=== PATIENT | female | born 1960 | race American Indian/Alaskan Native ===

== ENCOUNTER 2019-06-25 05:46 | Inpatient (IN) | payer SELFPAY ==
[2019-06-25 06:13] LABS: Basophils % (Auto) 0.4 % (0.0-1.8); Eosinophils # (Auto) 0.1 K/mm3 (0.0-0.4); Eosinophils % (Auto) 1.4 % (0.0-4.3); Hematocrit 33.6 % (30.3-42.9); Hemoglobin 11.3 gm/dl (10.1-14.3); Lymphocytes # (Auto) 3.1 K/mm3 (1.2-5.4); Lymphocytes % (Auto) 29.2 % (13.4-35.0); Mean Corpuscular HGB Conc 34 % (30-34); Mean Corpuscular Volume 94 fl (79-97); Monocytes # (Auto) 0.5 K/mm3 (0.0-0.8); Monocytes % (Auto) 5.1 % (0.0-7.3); Platelet Count 267 K/mm3 (140-440); Red Blood Count 3.57 M/mm3 (3.65-5.03); Red Cell Distribution Width 14.2 % (13.2-15.2)
[2019-06-25 06:38] LABS: Alanine Aminotransferase 12 units/L (7-56); Albumin 4.2 g/dL (3.9-5); BUN/Creatinine Ratio 35; Blood Urea Nitrogen 21 mg/dL (7-17); Calcium 10.2 mg/dL (8.4-10.2); Hemolysis Index 11
[2019-06-25 06:45] LABS: Bacteria,Urine 1+ /HPF (Negative); Bilirubin,Urine NEG (Negative); Blood,Urine MOD (Negative); Color,Urine Yellow (Yellow); Mucus,Urine 1+ /HPF; Urobilinogen,Urine < 2.0 mg/dL (<2.0)
[2019-06-25] MEDS ORDERED: SODIUM CHLORIDE 0.9% 1000 ML 1,000 ML IV ONE (07:30)
[2019-06-25] MEDS ORDERED: MORPHINE 4 MG/1 ML INJ IV ONE ×3 (07:30→12:37)
[2019-06-25] MEDS ORDERED: ONDANSETRON 4 MG/2 ML INJ IV ONE ×2 (07:30→16:59)
[2019-06-25] MEDS ORDERED: FAMOTIDINE 20 MG/2 ML INJ IV ONE (07:31)
--- NOTE | 2019-06-25 07:39 | Emergency Department Report ---
ED General Adult HPI - General Chief complaint: Abdominal Pain Stated complaint: ABDOMINAL PAIN Time Seen by Provider: 06/25/19 07:23 Source: patient Mode of arrival: Ambulatory Limitations: No Limitations - History of Present Illness Initial comments: 59-year-old -[place] female presents with complaints of sudden onset of upper abdominal pain x 2 AM. She admits to history of gallstones, however denies any history of GERD, abdominal surgeries, or other GI issues. Patient describes her pain as stabbing and cramping in nature and reports 2 episodes of vomiting. She denies any hematemesis/coffee-ground emesis, hematochezia/melena, fever/chills/sweats, diarrhea/constipation, cough, or chest pain. She rates her current pain as a 10/10 in severity. - Related Data Allergies Allergy/AdvReac Type Severity Reaction Status Date / Time No Known Allergies Allergy Verified 06/25/19 05:54 ED Review of Systems ROS: Stated complaint: ABDOMINAL PAIN Other details as noted in HPI Constitutional: denies: chills, fever, malaise, weakness ENT: denies: congestion Respiratory: denies: cough, shortness of breath Cardiovascular: denies: chest pain, palpitations, edema Gastrointestinal: abdominal pain, nausea, vomiting. denies: diarrhea, constipation, hematemesis, melena, hematochezia Genitourinary: denies: urgency, dysuria, frequency, hematuria Musculoskeletal: denies: back pain Skin: denies: rash, lesions Neurological: denies: headache, weakness, numbness, paresthesias Hematological/Lymphatic: denies: easy bleeding, swollen glands ED Past Medical Hx - Past Medical History Previous Medical History?: No - Surgical History Past Surgical History?: No - Social History Smoking Status: Never Smoker Substance Use Type: None ED Physical Exam - General Limitations: No Limitations General appearance: alert, obese, other (Appears to be uncomfortable lying on the bed) - Head Head exam: Present: atraumatic, normocephalic - Eye Eye exam: Present: normal appearance. Absent: scleral icterus - ENT ENT exam: Present: mucous membranes moist - Neck Neck exam: Present: normal inspection, full ROM - Respiratory Respiratory exam: Present: normal lung sounds bilaterally. Absent: respiratory distress - Cardiovascular Cardiovascular Exam: Present: regular rate, normal rhythm. Absent: systolic murmur, diastolic murmur, rubs, gallop - GI/Abdominal GI/Abdominal exam: Present: soft, tenderness (Epigastric and right upper quadrant, positive Jane sign), guarding, rebound, normal bowel sounds. Absent: distended, mass - Extremities Exam Extremities exam: Present: normal inspection - Back Exam Back exam: Present: normal inspection - Neurological Exam Neurological exam: Present: alert, oriented X3 - Psychiatric Psychiatric exam: Present: normal affect, normal mood - Skin Skin exam: Present: warm, dry, intact, normal color. Absent: rash, cyanosis, erythema, ecchymosis ED Course Vital Signs 06/25/19 06/25/19 06/25/19 05:55 07:56 10:43 Temperature 97.9 F 97.6 F Pulse Rate 63 63 Respiratory 18 22 18 Rate Blood Pressure 137/59 130/75 O2 Sat by Pulse 99 99 Oximetry 06/25/19 06/25/19 12:38 13:36 Temperature 97.4 F L Pulse Rate 56 L Respiratory 18 18 Rate Blood Pressure 140/73 O2 Sat by Pulse 99 Oximetry ED Medical Decision Making - Lab Data Result diagrams: 06/25/19 06:01 06/25/19 06:01 Lab Results 06/25/19 06/25/19 06/25/19 Range/Units 06:01 06:01 06:15 WBC 10.5 (4.5-11.0) K/mm3 RBC 3.57 L (3.65-5.03) M/mm3 Hgb 11.3 (10.1-14.3) gm/dl Hct 33.6 (30.3-42.9) % MCV 94 (79-97) fl MCH 32 (28-32) pg MCHC 34 (30-34) % RDW 14.2 (13.2-15.2) % Plt Count 267 (140-440) K/mm3 Lymph % (Auto) 29.2 (13.4-35.0) % Canadian % (Auto) 5.1 (0.0-7.3) % Eos % (Auto) 1.4 (0.0-4.3) % Baso % (Auto) 0.4 (0.0-1.8) % Lymph # 3.1 (1.2-5.4) K/mm3 Canadian # 0.5 (0.0-0.8) K/mm3 Eos # 0.1 (0.0-0.4) K/mm3 Baso # 0.0 (0.0-0.1) K/mm3 Seg Neutrophils % 63.9 (40.0-70.0) % Seg Neutrophils # 6.7 (1.8-7.7) K/mm3 Sodium 141 (137-145) mmol/L Potassium 3.6 (3.6-5.0) mmol/L Chloride 99.2 (98-107) mmol/L Carbon Dioxide 25 (22-30) mmol/L Anion Gap 20 mmol/L BUN 21 H (7-17) mg/dL Creatinine 0.6 L (0.7-1.2) mg/dL Estimated GFR > 60 ml/min BUN/Creatinine Ratio 35 % Glucose 175 H (65-100) mg/dL Calcium 10.2 (8.4-10.2) mg/dL Total Bilirubin 0.30 (0.1-1.2) mg/dL AST 16 (5-40) units/L ALT 12 (7-56) units/L Alkaline Phosphatase 64 (35-129) units/L Total Protein 8.5 H (6.3-8.2) g/dL Albumin 4.2 (3.9-5) g/dL Albumin/Globulin Ratio 1.0 % Lipase 46 (13-60) units/L Urine Color Yellow (Yellow) Urine Turbidity Hazy (Clear) Urine pH 5.0 (5.0-7.0) Ur Specific Conley 1.030 (1.003-1.030) Urine Protein 100 mg/dl (Negative) mg/dL Urine Glucose (UA) Neg (Negative) mg/dL Urine Ketones Neg (Negative) mg/dL Urine Blood Mod (Negative) Urine Nitrite Neg (Negative) Urine Bilirubin Neg (Negative) Urine Urobilinogen < 2.0 (<2.0) mg/dL Ur Leukocyte Esterase Neg (Negative) Urine WBC (Auto) 4.0 (0.0-6.0) /HPF Urine RBC (Auto) 5.0 (0.0-6.0) /HPF U Epithel Cells (Auto) 11.0 (0-13.0) /HPF Urine Bacteria (Auto) 1+ (Negative) /HPF Urine Mucus 1+ /HPF - EKG Data EKG shows normal: sinus rhythm Rate: bradycardia (57 bpm) - EKG Data When compared to previous EKG there are: previous EKG unavailable - Radiology Data Radiology results: report reviewed ULTRASOUND ABDOMEN, LIMITED (RIGHT UPPER QUADRANT) INDICATION: Acute right upper quadrant/epigastric pain. History of gallstones. COMPARISON: None available. FINDINGS: Pancreas: Visualized portion shows no significant abnormality. Liver: No significant abnormality. Gallbladder: Multiple gallstones are seen without wall thickening or pericholecystic fluid. Sonographic Jane's sign: Not performed. Bile ducts: No significant abnormality. Common Bile Duct measures 4 mm. Free fluid: None. Additional Findings: None. IMPRESSION: Cholelithiasis without sonographic evidence of acute cholecystitis. CT abdomen pelvis w con INDICATION: acute epigastric/RUQ pain. TECHNIQUE: All CT scans at this location are performed using the following dose modulation technique: Automated exposure control. CONTRAST: Omnipaque 300, 100 cc IV injection. COMPARISON: None available. CT ABDOMEN: Evaluation of the lung bases demonstrates moderate scarring at the right base medially. The parenchymal organs are unremarkable in appearance. Multiple gallstones are present. There is associated wall thickening/inflammation. Negative for abdominal mass, fluid or inflammation. The bowel is not dilated or thickened. CT PELVIS: Negative for distal ureteral stone, pelvic fluid collection or inflammation. The appendix is normal. IMPRESSION: Gallstones with cholecystitis. - Medical Decision Making Patient here with complaints of sudden onset of upper abdominal pain starting around 2 AM last night. She denies any red flag symptoms and her vitals are stable. CBC, CMP, and lipase are without acute findings. Abdominal ultrasound shows cholelithiasis without cholecystitis, however cholecystitis is noted on the CT of the abdomen. Patient's pain is difficult to control. Discussed patient with Dr. Napier, general surgery-recommends admission. Patient to be admitted via Dr. Crouch, [facility] medicine. Critical care attestation.: If time is entered above; I have spent that time in minutes in the direct care of this critically ill patient, excluding procedure time. ED Disposition Clinical Impression: Cholecystitis Disposition: OP ADMIT IP TO THIS HOSP Is pt being admited?: Yes Condition: Stable
[2019-06-25] MEDS ORDERED: DICYCLOMINE 20 MG/2 ML INJ IM ONE (08:42)
--- NOTE | 2019-06-25 09:58 | Ultrasound Report ---
ULTRASOUND ABDOMEN, LIMITED (RIGHT UPPER QUADRANT) INDICATION: Acute right upper quadrant/epigastric pain. History of gallstones. COMPARISON: None available. FINDINGS: Pancreas: Visualized portion shows no significant abnormality. Liver: No significant abnormality. Gallbladder: Multiple gallstones are seen without wall thickening or pericholecystic fluid. Sonograp hic Jane's sign: Not performed. Bile ducts: No significant abnormality. Common Bile Duct measures 4 mm. Free fluid: None. Additional Findings: None. IMPRESSION: Cholelithiasis without sonographic evidence of acute cholecystitis. Signer Name: Josep Montoya MD Signed: 06/25/2019 9:54 AM Workstation Name: [id number]
--- NOTE | 2019-06-25 12:30 | Cat Scan Report ---
CT abdomen pelvis w con INDICATION: acute epigastric/RUQ pain. TECHNIQUE: All CT scans at this location are performed using the following dose modulation technique: Automated exposure control. CONTRAST: Omnipaque 300, 100 cc IV injection. COMPARISON: None available. CT ABDOMEN: Evaluation of the lung bases demonstrates moderate scarring at the right base medially. The parenchymal organs are unremarkable in appearance. Multiple gallstones are present. There is asso ciated wall thickening/inflammation. Negative for abdominal mass, fluid or inflammation. The bowel is not dilated or thickened. CT PELVIS: Negative for distal ureteral stone, pelvic fluid collection or inflammation. The appendix is normal. IMPRESSION: Gallstones with cholecystitis. Signer Name: Will Granger MD Signed: 06/25/2019 12:25 PM Workstation Name: [id number]
[2019-06-25] MEDS ORDERED: MORPHINE 4 MG/1 ML INJ ONE (12:34)
[2019-06-25] MEDS ORDERED: PIPERACIL/TAZOBACTA 4.5/NS 100 4.5 GM/100 ML VIAL IV ONE (13:00)
--- NOTE | 2019-06-25 14:32 | History and Physical Report ---
History of Present Illness Chief complaint: My stomach hurts History of present illness: 59 YO Female with MO presents to ED for evaluation. Patient states that she experienced an acute onset of abdominal pain that awoke her from sleep at approximately 0200 hrs. Patient states that pain was 10/10 in severity, locali zed to the right upper quadrant, stabbing in nature, associated with crampy abdominal discomfort, constant, not worsened with exertion or relieved with rest. Patient acknowledges nausea and 2 episodes of vomiting. Patient acknowledges inability to tolerate oral diet. Patient transported to [facility] via private vehicle for further evaluation and care. Patient seen and evaluated in the emergency department. Lab and imaging studies reviewed. Patient underwent CT scan of the abdomen and pelvis and was found to have gallbladder wall thickening with multiple gallstones. Patient symptoms consistent with Coleycystitis. Patient admitted to surgical floor. Surgery team consulted in ED. Patient denies fever, chills, chest pain, palpitations, productive cough, skin rash, known ill contacts, ingestion of food/water from new or different sources, bright red blood per rectum, hematemesis, skin rash, or known exposure to COVID-19. No prior admission for review. No medication listed at time of a dmission for reconciliation. Advanced care planning conducted in ED. Past History Past Medical History: other (See HPI) Past Surgical History: No surgical history, Other (Reviewed) Social history: single. denies: smoking, alcohol abuse, prescription drug abuse Family history: no significant family history (Reviewed) Medications and Allergies Allergies Allergy/AdvReac Type Severity Reaction Status Date / Time No Known Allergies Allergy Verified 06/25/19 05:54 Review of Systems Constitutional: no weight loss, no weight gain, no fever, no chills Ears, nose, mouth and throat: no ear pain, no ear discharge, no tinnitis, no decreased hearing, no nose pain Breasts: no change in shape, no swelling, no mass Cardiovascular: no chest pain, no orthopnea, no palpitations, no rapid/irregular heart beat, no edema, no syncope Respiratory: no cough, no cough with sputum, no excessive sputum, no hemoptysis, no shortness of breath Gastrointestinal: abdominal pain, nausea, vomiting, no diarrhea, no constipation, no hematemesis, no coffee ground emesis, no BRBPR, no melena, no hematochezia Genitourinary Female: no pelvic pain, no flank pain, no menorrhagia, no dysuria, no urinary frequency, no urgency Rectal: no pain, no incontinence, no bleeding Musculoskeletal: no neck stiffness, no neck pain, no shooting arm pain, no arm numbness/tingling, no low back pain Integumentary: no rash, no pruritis, no redness, no sores, no wounds Neurological: no transient paralysis, no paralysis, no weakness, no parathesias, no numbness, no tingling Psychiatric: no anxiety, no memory loss, no change in sleep habits, no sleep disturbances, no insomnia, no hypersomnia, no change in libido Endocrine: no cold intolerance, no heat intolerance, no excessive thirst, no polydipsia, no polyuria, no nocturia Hematologic/Lymphatic: no easy bruising, no easy bleeding, no lymphadenopathy, no lymphedema Allergic/Immunologic: no urticaria, no allergic rhinitis, no wheezing, no persistent infections, no anaphylaxis Exam - Constitutional Vitals: Temp Pulse Resp BP Pulse Ox 97.6 F 63 18 130/75 99 06/25/19 10:43 06/25/19 10:43 06/25/19 12:38 06/25/19 10:43 06/25/19 10:43 General appearance: Present: mild distress - EENT Eyes: Present: PERRL ENT: hearing intact, clear oral mucosa - Neck Neck: Present: supple, normal ROM - Respiratory Respiratory effort: normal Respiratory: bilateral: CTA - Cardiovascular Heart Sounds: Present: S1 & S2. Absent: rub, click - Extremities Extremities: pulses symmetrical, No edema Peripheral Pulses: within normal limits - Abdominal General gastrointestinal: Present: soft, tender, non-distended, normal bowel sounds. Absent: hepatomegaly, splenomegaly, mass, hernia Female genitourinary: Present: normal - Integumentary Integumentary: Present: clear, warm, dry - Musculoskeletal Musculoskeletal: gait normal, strength equal bilaterally - Psychiatric Psychiatric: appropriate mood/affect, intact judgment & insight - Neurologic Neurologic: CNII-XII intact, moves all extremities HEART Score - HEART Score Troponin: Troponin T < 0.010 ng/mL (0.00-0.029) 06/25/19 06:01 Results - Labs CBC & Chem 7: 06/25/19 06:01 06/25/19 06:01 Labs: Abnormal lab results 06/25/19 06/25/19 Range/Units 06:01 06:01 RBC 3.57 L (3.65-5.03) M/mm3 BUN 21 H (7-17) mg/dL Creatinine 0.6 L (0.7-1.2) mg/dL Glucose 175 H (65-100) mg/dL Total Protein 8.5 H (6.3-8.2) g/dL Assessment and Plan - Patient Problems (1) Acute cholecystitis Current Visit: Yes Status: Acute Plan to address problem: IV antibiotic therapy, bowel rest, IV fluid resuscitation therapy, CBC, CMP, CT scan of the abdomen and pelvis, surgery service consulted, serial physical exam. (2) Obesity (BMI 30-39.9) Current Visit: Yes Status: Acute Plan to address problem: Balanced diet, increase physical activity at discharge. (3) DVT prophylaxis Current Visit: Yes Status: Acute Plan to address problem: SCD to bilateral lower extremities while in bed, patient is ambulatory. (4) Advance care planning Current Visit: Yes Status: Acute Plan to address problem: Disease education conducted, patient is full code, patient acknowledges understanding and agreement with care plan. +30 minutes.
[2019-06-25] MEDS ORDERED: dexAMETHasone 20 MG/5 ML VIAL IV ONE (14:53)
[2019-06-25] MEDS ORDERED: HYDROmorphone 1 MG/1 ML INJ IV ONE (14:54)
[2019-06-25] MEDS ORDERED: ONDANSETRON 4 MG/2 ML INJ IV PRN (18:11)
--- NOTE | 2019-06-25 18:13 | Consultation ---
History of Present Illness Consult date: 06/25/19 Reason for consult: abdominal pain Requesting physician: DAVID AGUIRRE Chief complaint: abdominal pain - History of present illness History of present illness: 59yo F from [place] presents with acute onset of abdominal pain. Patient reports that she began to feel discomfort in the abdomen last night that progressed to severe abdominal pain associated with nausea and vomiting. Denies any fevers or chills. She had a similar episode, but less intense, a few years ago at which time she was diagnosed with gallstones. Currently, she is feeling much better. Past History Past Medical History: No medical history Past Surgical History: No surgical history, Other (Reviewed) Social history: single. denies: smoking, alcohol abuse, prescription drug abuse Family history: no significant family history (Reviewed) Medications and Allergies Allergies Allergy/AdvReac Type Severity Reaction Status Date / Time No Known Allergies Allergy Verified 06/25/19 05:54 Review of Systems - Constitutional no fever, no chills, no chronic pain - Cardiovascular no chest pain, no shortness of breath - Respiratory no cough - Gastrointestinal abdominal pain, nausea, vomiting, dyspepsia/bloating, no diarrhea, no hematemesis, no coffee ground emesis - Genitourinary Genitourinary: no dysuria - Muskuloskeletal no low back pain - Integumentary no rash, no pruritis, no wounds, no jaundice Exam Vital Signs Temp Pulse Resp BP Pulse Ox 97.9 F 63 18 137/59 99 06/25/19 05:55 06/25/19 05:55 06/25/19 05:55 06/25/19 05:55 06/25/19 05:55 - General physical appearance Positive: well developed, well nourished, no distress, no pain, other (pleasant) - Eyes Positive: normal occular movement. Negative: icteric - Respiratory Positive: normal expansion, normal respiratory effort - Cardiovascular Rhythm: regular - Abdomen Abdomen: Present: soft, tender (tender in epigastric and RUQ area. caused vomiting during exam). Absent: distended, guarding, rigid, wound, surgical scars - Integumentary no rash, no growths, no abnormal pigmentation - Neurologic Neurologic: alert and oriented to time, place and person, motor strength and sensation are grossly intact - Psychiatric Psychiatric: appropriate mood/affect, intact judgment & insight, cooperative Results - Labs 06/25/19 06:01 06/25/19 06:01 Abnormal lab results 06/25/19 06/25/19 Range/Units 06:01 06:01 RBC 3.57 L (3.65-5.03) M/mm3 BUN 21 H (7-17) mg/dL Creatinine 0.6 L (0.7-1.2) mg/dL Glucose 175 H (65-100) mg/dL Total Protein 8.5 H (6.3-8.2) g/dL Diabetes panel 06/25/19 Range/Units 06:01 Sodium 141 (137-145) mmol/L Potassium 3.6 (3.6-5.0) mmol/L Chloride 99.2 (98-107) mmol/L Carbon Dioxide 25 (22-30) mmol/L BUN 21 H (7-17) mg/dL Creatinine 0.6 L (0.7-1.2) mg/dL Glucose 175 H (65-100) mg/dL Calcium 10.2 (8.4-10.2) mg/dL AST 16 (5-40) units/L ALT 12 (7-56) units/L Alkaline Phosphatase 64 (35-129) units/L Total Protein 8.5 H (6.3-8.2) g/dL Albumin 4.2 (3.9-5) g/dL Calcium panel 06/25/19 Range/Units 06:01 Calcium 10.2 (8.4-10.2) mg/dL Albumin 4.2 (3.9-5) g/dL Pituitary panel 06/25/19 Range/Units 06:01 Sodium 141 (137-145) mmol/L Potassium 3.6 (3.6-5.0) mmol/L Chloride 99.2 (98-107) mmol/L Carbon Dioxide 25 (22-30) mmol/L BUN 21 H (7-17) mg/dL Creatinine 0.6 L (0.7-1.2) mg/dL Glucose 175 H (65-100) mg/dL Calcium 10.2 (8.4-10.2) mg/dL Adrenal panel 06/25/19 Range/Units 06:01 Sodium 141 (137-145) mmol/L Potassium 3.6 (3.6-5.0) mmol/L Chloride 99.2 (98-107) mmol/L Carbon Dioxide 25 (22-30) mmol/L BUN 21 H (7-17) mg/dL Creatinine 0.6 L (0.7-1.2) mg/dL Glucose 175 H (65-100) mg/dL Calcium 10.2 (8.4-10.2) mg/dL Total Bilirubin 0.30 (0.1-1.2) mg/dL AST 16 (5-40) units/L ALT 12 (7-56) units/L Alkaline Phosphatase 64 (35-129) units/L Total Protein 8.5 H (6.3-8.2) g/dL Albumin 4.2 (3.9-5) g/dL - Imaging CT scan - abdomen: report reviewed, image reviewed CT scan - pelvis: report reviewed, image reviewed US - abdomen: report reviewed, image reviewed Assessment and Plan - Patient Problems (1) Acute cholecystitis Current Visit: Yes Status: Acute Plan to address problem: Pt stable. She is currently feeling better. She has a very distended gallbladder which is most likely contributing to most of her pain. She would benefit from cholecystectomy. Options discussed. Patient would like to proceed with surgery during this hospitalization. Procedure, risk, benefits were discussed all questions were answered. Consent was obtained. We will coordinate with OR to find time in the schedule. We will follow along. Please call with any questions Time=30min
[2019-06-26] MEDS ORDERED: MORPHINE 2 MG/1 ML INJ IV PRN (01:31)
[2019-06-26] MEDS ORDERED: SODIUM CHLORIDE 0.45% 1000 ML 1,000 ML IV SCH (02:00)
[2019-06-26] MEDS ORDERED: LACTATED RINGERS 1,000 ML ONE (10:01)
[2019-06-26] MEDS ORDERED: LIDOCAINE (1%) 10 MG/1 ML VIAL 20 ML MDV ONE (10:11)
[2019-06-26] MEDS ORDERED: BUPIVACAINE/PF (0.25%) 2.5 MG/ML 30 ML VIAL INFILTRATI ONE ×2 (10:12→12:05)
--- NOTE | 2019-06-26 10:36 | Anesthesia Consultation ---
Anesthesia Consult and Med Hx Date of service: 06/26/19 - Airway Anesthetic Teeth Evaluation: Good ROM Head & Neck: Adequate Mental/Hyoid Distance: Adequate Mallampati Class: Class II Intubation Access Assessment: Good - Pre-Operative Health Status ASA Pre-Surgery Classification: ASA2 Proposed Anesthetic Plan: General - Pulmonary Hx Asthma: Yes Hx Respiratory Symptoms: No (+2FS) COPD: No Hx Pneumonia: No - Endocrine Hx End Stage Renal Disease: No
--- NOTE | 2019-06-26 10:36 | Anesthesia Day of Surgery ---
Anesthesia Day of Surgery - Day of Surgery Patient Examined: Yes Patient H&P Reviewed: Yes Patient is NPO: Yes
[2019-06-26] MEDS ORDERED: fentaNYL 100 MCG/2 ML INJ ONE (11:00)
[2019-06-26] MEDS ORDERED: LACTATED RINGERS 1,000 ML IV SCH (11:00)
[2019-06-26] MEDS ORDERED: propofoL 200 MG/20 ML VIAL IV ONE (11:01)
[2019-06-26] MEDS ORDERED: LIDOCAINE MPF (2%) 20 MG/1 ML VIAL 5 ML ONE (11:01)
[2019-06-26] MEDS ORDERED: ROCURONIUM 50 MG/5 ML INJ IV ONE (11:01)
[2019-06-26] MEDS ORDERED: SUCCINYLCHOLINE CHLORIDE 200 MG/10 ML INJ MDV ONE (11:57)
[2019-06-26] MEDS ORDERED: ONDANSETRON 4 MG/2 ML INJ ONE (12:02)
[2019-06-26] MEDS ORDERED: dexAMETHasone 20 MG/5 ML VIAL ONE (12:02)
[2019-06-26] MEDS ORDERED: LIDOCAINE (1%) 10 MG/1 ML VIAL 20 ML MDV INFILTRATI ONE (12:04)
[2019-06-26] MEDS ORDERED: SODIUM CHLORIDE 0.9% IRR 1,000 ML BOTTLE IR ONE (12:05)
[2019-06-26] MEDS ORDERED: NEOSTIGMINE 10MG/10 ML INJ MDV ONE (13:22)
[2019-06-26] MEDS ORDERED: GLYCOPYRROLATE 0.4 MG/2 ML INJ ONE (13:23)
[2019-06-26] MEDS ORDERED: oxyCODONE /ACETAMINOPHEN 5-325MG TAB PO PRN (13:31)
--- NOTE | 2019-06-26 13:31 | Post Operative Note ---
Pre-op diagnosis: acute cholecystitis Post-op diagnosis: same Findings: Distended gallbladder full of stones Pericholecystic fluid Scarring at the neck of the gallbladder Adhesions from omentum and stomach to gallbladder Procedure: laparoscopic cholecystectomy Anesthesia: FIFI local Surgeon: DIOGENES BUCHANAN Aerial Lineman: JAKUB SANTAMARIA Estimated blood loss: minimal Pathology: list (gallbladder) Specimen disposition: to lab Condition: stable Disposition: PACU
[2019-06-26] MEDS ORDERED: ONDANSETRON 4 MG/2 ML INJ IV PRN (13:50)
[2019-06-26] MEDS: HYDROmorphone 1 MG/1 ML INJ IV PRN ×3 (14:02→22:21)
--- NOTE | 2019-06-26 15:56 | Operative Report ---
Operative Report Operative Report: Date: 06/26/19 13:29 Pre-op diagnosis: acute cholecystitis Post-op diagnosis: same Findings: Distended gallbladder full of stones Pericholecystic fluid Scarring at the neck of the gallbladder Adhesions from omentum and stomach to gallbladder Procedure: laparoscopic cholecystectomy Anesthesia: FIFI, local Surgeon: DIOGENES BUCHANAN Item Processor: JAKUB SANTAMARIA Estimated blood loss: minimal Pathology: list (gallbladder) Specimen disposition: to lab Condition: stable Disposition: PACU HPI an indication: 59-year-old female who presented to the hospital with complaints of right upper quadrant abdominal pain. She was found to have acute cholecystitis on imaging consisting of a CAT scan of abdomen and pelvis and a right upper quadrant ultrasound. The patient was kept n.p.o. and started on IV antibiotics and fluids. It was recommended that she undergo cholecystectomy. All risks, benefits, alternatives to surgery were discussed with the patient and questions answered. Consent was obtained for laparoscopic cholecystectomy, possible open, possible cholangiogram. Procedure in detail: The patient was identified in the preoperative area and taken back to the operating room, placed on the operating room table in supine position. After anesthesia was induced, the abdomen was prepped and draped in usual sterile fashion and timeout was performed. Local anesthetic was infi ltrated into all of the skin incision sites. Veress needle was inserted through the umbilicus and the positioning confirmed using saline drop test. The abdomen was insufflated to 15 mmHg. Using an 11 blade a supraumbilical incision was made and through a 5 mm Optiview trocar was placed under direct visualization. The abdomen was then inspected and there was no underlying injury to any of the abdominal contents. The Veress needle was removed. An additional 12 mm subxyphoid port, and 2, 5mm RUQ ports were then placed under direct visualization. The patient was then placed into reverse Trendelberg and tilted to the left. The gallbladder was visualized and was very distended with chronic adhesions to the omentum and stomach. In addition the liver was large and congested appearing. There was some inflammatory fluid visualized in the right upper quadrant. The gallbladder was first decompressed using a laparoscopic needle and 30 cc syringe. 75 cc of green bile was aspirated from the gallbladder. The gallbladder was grasped and retracted cephalad. The adhesions to the omentum and stomach were carefully dissected using hook electrocautery with great care to avoid injury to underlying structures. Once these adhesions were freed, the gallbladder was able to be retracted over the liver and the neck visualized. The cystic duct and artery were then carefully dissected and the critical view obtained. There was some scarring overlying the cystic duct. The cystic duct and artery were the only two structures seen entering the gallbladder. Three clips were then placed on the proximal aspect of the cystic duct and one clip distally, and 2 clips on the cystic artery proximally and one distal. The cystic duct was then transected in between the clips using EndoShears. The cystic artery was ligated distal to the clips using harmonic scalpel. The gallbladder was dissected off the liver bed using hook electrocautery. The gallbladder was placed into a Endo Catch bag and removed from the abdomen via the 12mm port. The gallbladder fossa was then inspected and there was no identifiable bleeding or bile leakage. Hemostasis was ensured using a combination of Surgicel, pressure, electrocautery. The clips on the cystic duct and artery were visualized and intact. The patient was then placed into neutral position and Morison's pouch was irrigated and the irrigant retur javan clear. The 12 mm port fascia was closed with 2, interrupted 0 Vicryl sutures using the Deejay Diehl device. The remaining ports were removed under direct visualization. Skin incisions were closed with 4-0 Monocryl subcuticular stitches and skin glue. All skin incisions were once again infiltrated with local anesthetic. The gallbladder was palpated and contained multiple large stones. At the end case all sponge, instrument, sharp counts were correct 2. The patient was awoken from anesthesia, extubated, taken to PACU in stable condition.
--- NOTE | 2019-06-26 17:34 | Post Anesthesia Evaluation ---
- Post Anesthesia Evaluation Patient Participated: Yes Airway Patent: Yes Stable Respiratory Function: Yes Nausea/Vomiting: No Temp > 96.8F: Yes Pain Manageable: Yes Adequeate Hydration: Yes Anesthesia Complications: No Block Receding Appropriately: Not Applicable Patient on Ventilator: No
--- NOTE | 2019-06-27 00:29 | Progress Note ---
Assessment and Plan - Patient Problems (1) Acute cholecystitis Current Visit: Yes Status: Acute Plan to address problem: Patient going for surgery IV fluids IV ABX Pain control (2) Hyperglycemia Current Visit: Yes Status: Acute Plan to address problem: Check A1c (3) DVT prophylaxis Current Visit: Yes Status: Acute Plan to address problem: On Heparin and GI prophylaxis Subjective Date of service: 06/26/19 Principal diagnosis: Acute cholecystitis Interval history: 59 YO Female with MO presents to ED for evaluation. Patient states that she experienced an acute onset of abdominal pain that awoke her from sleep at approximately 0200 hrs. Patient states that pain was 10/10 in severity, localized to the right upper quadrant, stabbing in nature, associated with c rampy abdominal discomfort, constant, not worsened with exertion or relieved with rest. Patient acknowledges nausea and 2 episodes of vomiting. Patient acknowledges inability to tolerate oral diet. Patient transported to [facility] via private vehicle for further evaluation and care. Patient seen and evaluated in the emergency department. Lab and imaging studies reviewed. Patient underwent CT scan of the abdomen and pelvis and was found to have gallbladder wall thickening with multiple gallstones. Patient symptoms consistent with Coleycystitis. Patient admitted to surgical floor. Surgery team consulted in ED. Patient denies fever, chills, chest pain, palpitations, productive cough, skin rash, known ill contacts, ingestion of food/water from new or different sources, bright red blood per rectum, hematemesis, skin rash, or known exposure to COVID-19. No prior admission for review. No medication listed at time of admission for reconciliation. Advanced care planning conducted in ED. Going to OR now.Still in pain Objective - Constitutional Vitals: Vital Signs - 12hr 06/26/19 06/26/19 06/26/19 13:38 13:45 14:00 Temperature 97.4 F L Pulse Rate 67 61 53 L Respiratory 22 12 15 Rate Blood Pressure 128/68 127/53 132/57 Blood Pressure [Left] O2 Sat by Pulse 99 100 99 Oximetry 06/26/19 06/26/19 06/26/19 14:02 14:05 14:15 Temperature Pulse Rate 56 L 56 L Respiratory 14 12 12 Rate Blood Pressure 104/59 115/65 Blood Pressure [Left] O2 Sat by Pulse 100 100 Oximetry 05/19/20 05/19/20 05/19/20 14:25 14:47 19:35 Temperature 97.9 F 98.5 F 98.9 F Pulse Rate 58 L 60 70 Respiratory 21 21 17 Rate Blood Pressure 120/67 126/66 188/88 Blood Pressure [Left] O2 Sat by Pulse 99 95 98 Oximetry 06/26/19 06/26/19 06/27/19 19:54 20:55 00:07 Temperature 98.3 F Pulse Rate 72 Respiratory 17 Rate Blood Pressure 124/67 Blood Pressure 163/74 [Left] O2 Sat by Pulse 96 96 Oximetry General appearance: Present: no acute distress, well-nourished - EENT Eyes: PERRL, EOM intact ENT: hearing intact, clear oral mucosa Ears: bilateral: normal - Neck Neck: supple, normal ROM - Respiratory Respiratory effort: normal Respiratory: bilateral: CTA - Breasts Breasts: normal - Cardiovascular Heart rate: 78 Rhythm: regular Heart Sounds: Present: S1 & S2. Absent: gallop, rub Extremities: pulses intact, No edema, normal color, Full ROM - Gastrointestinal General gastrointestinal: Present: soft, tender, non-distended, normal bowel sounds Localized gastrointestinal: tender: RUQ, guarding: RUQ - Genitourinary Female genitourinary: normal - Integumentary Integumentary: clear, warm, dry - Musculoskeletal Musculoskeletal: 1, strength equal bilaterally - Neurologic Neurologic: moves all extremities - Psychiatric Psychiatric: memory intact, appropriate mood/affect, intact judgment & insight - Labs CBC & Chem 7: 06/25/19 06:01 06/25/19 06:01 HEART Score - HEART Score Troponin: Troponin T < 0.010 ng/mL (0.00-0.029) 06/25/19 06:01
[2019-06-27 13:09] VITALS: BP 146/79
--- NOTE | 2019-06-27 14:27 | Progress Note ---
Assessment and Plan 59-year-old female status post laparoscopic cholecystectomy, postop day 1 for acute cholecystitis Plan 1. Reg diet 2. dc IVF 3. Prn PO pain medication as needed 4. OOB/ambulate 5. IS/pulm toilet 6. Ok to dc from surgery standpoint. Pt instructed to follow up in surgery clinic in 10-14 day. Information given to her to make an appointment. Discharge instructions reviewed verbally. Discussed with Dr. Bowen Thank you for this consultation. Please call with any questions or concerns. Evaluation and treatment of this patient was during the time of the national and state emergency arising from COVID19 coronavirus pandemic. Treatment and procedures performed meet the current and available best practice and guidelines for patient during the COVID pandemic. Subjective Date of service: 06/27/19 Narrative: Patient seen and examined. She states that she feels well. Her incisional pain is controlled with pain medication. No fevers, chills. She is tolerating a diet without nausea or vomiting. Objective Vital Signs - 12hr 06/27/19 06/27/19 06/27/19 04:34 08:21 12:00 Temperature 98.8 F 99 F 97.3 F L Pulse Rate 64 65 65 Respiratory 16 20 20 Rate Blood Pressure 151/80 Blood Pressure 166/80 146/79 [Left] O2 Sat by Pulse 97 97 96 Oximetry - General physical appearance Narrative Exam: Gen.: Awake, alert, oriented 3. No apparent distress ENT: Trachea midline. No lymphadenopathy. No scleral icterus or conjunctival pallor CV: S1, S2 present Respiratory: No audible wheezes Abdomen: Soft, nondistended, nontender. Incisions clean, dry, intact. No rebound, rigidity, guarding Extremities: No clubbing, cyanosis, edema - Labs 06/25/19 06:01 06/25/19 06:01
--- NOTE | 2019-06-27 15:11 | Discharge Summary ---
Providers - Providers Date of Admission: 06/26/19 01:30 Date of discharge: 06/27/19 Attending physician: FRACISCO COLLINS 06/25/19 13:24 Consult to Physician [CONS] Stat Comment: Consulting Provider: DENISE MALCOLM Physician Instructions: Reason For Exam: Cholecystitis Primary care physician: [employer] Hospitalization Condition: Stable Pertinent studies: CT abdomen IMPRESSION: Gallstones with cholecystitis. Procedures: S/p cholecystectomy Hospital course: (1) Acute cholecystitis Current Visit: Yes Status: Acute Plan to address problem: 59-year-old female status post laparoscopic cholecystectomy, postop day 1 for acute cholecystitis Plan 1. Reg diet 2. dc IVF 3. Prn PO pain medication as needed 4. OOB/ambulate 5. IS/pulm toilet 6. D/c from surgery standpoint. Pt instructed to follow up in surgery clinic in 10-14 day. Information given to her to make an appointment. Discharge instructions reviewed verbally. (2) Hyperglycemia Current Visit: Yes Status: Acute Plan to address problem: Metformin 500 po bid Disposition: - TO HOME OR SELFCARE - Discharge Diagnoses (1) Acute cholecystitis Status: Acute (2) Hyperglycemia Status: Acute Core Measure Documentation - Palliative Care Palliative Care/ Comfort Measures: Not Applicable - Core Measures Any of the following diagnoses?: none Exam - Constitutional Vitals: Temp Pulse Resp BP Pulse Ox 97.3 F L 65 20 146/79 96 06/27/19 12:00 06/27/19 12:00 06/27/19 12:00 06/27/19 12:00 06/27/19 12:00 General appearance: Present: no acute distress, well-nourished - EENT Eyes: Present: PERRL ENT: hearing intact, clear oral mucosa - Neck Neck: Present: supple, normal ROM - Respiratory Respiratory effort: normal Respiratory: bilateral: CTA - Cardiovascular Heart rate: 78 Rhythm: regular Heart Sounds: Present: S1 & S2. Absent: rub, click - Extremities Extremities: pulses symmetrical, No edema Peripheral Pulses: within normal limits - Abdominal General gastrointestinal: Present: soft, non-tender, non-distended, normal bowel sounds Female genitourinary: Present: normal - Integumentary Integumentary: Present: clear, warm, dry - Musculoskeletal Musculoskeletal: gait normal, strength equal bilaterally - Psychiatric Psychiatric: appropriate mood/affect, intact judgment & insight - Neurologic Neurologic: CNII-XII intact, moves all extremities Plan Activity: no restrictions Diet: regular Follow up with: DIOGENES BUCHANAN DO [Staff Physician] - 14 Days PRIMARY CARE, [Primary Care Provider] - 7 Days
== END 2019-06-27 17:40 | disposition home or self-care (01) | DRG 419 ==
LOC: ED 05:46 → 3B-SURG 06-26 01:30
PROVIDERS: ADMIT Internal Medicine; ATTEND Internal Medicine
PROC: 0FT44ZZ Resection of Gallbladder, Percutaneous Endoscopic Approach (ICD-10-PCS; principal; 2019-06-26)
DX: K80.00 Calculus of gallbladder with acute cholecystitis without obstruction (principal); K21.9 Gastro-esophageal reflux disease without esophagitis; E66.9 Obesity, unspecified; R73.9 Hyperglycemia, unspecified; Z68.38 Body mass index [BMI] 38.0-38.9, adult
CPT/HCPCS: 36415; 74177; 76705; 80053; 81001; 83036; 83690; 84484; 85025; 88304; 93005; G0378; J0330; J0500; J1100; J1170; J2270; J2405; J2543; J2704; J2710; J3010; J7030; J7120; Q9967